=== PATIENT | female | born 1970 | race Caucasian/White ===

== ENCOUNTER 2018-11-30 18:21 | Emergency (ER) | payer OTHER ==
[~2018-11-30] VITALS: Ht 175.3 cm; Wt 102.0 kg
--- NOTE | 2018-11-30 18:50 | NUR ---
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
[2018-11-30 18:59] LABS: BASOPHILS # (AUTO) 0.01 x10^3/uL (0-0.1); BASOPHILS % (AUTO) 0 % (0-1); EOSINOPHILS # (AUTO) 0.02 x10^3/uL (0-0.4); EOSINOPHILS % (AUTO) 1 % (1-7); LYMPHOCYTES # (AUTO) 0.95 x10^3/uL (1-3.4); LYMPHOCYTES % (AUTO) 19 % (22-44); MD NO; MEAN CORPUSCULAR HEMOGLOBIN 29.3 pg (27.0-34.8); MEAN CORPUSCULAR HGB CONC 34.4 g/dL (32.4-35.8); MEAN CORPUSCULAR VOLUME 85.2 fL (80-100); MEAN PLATELET VOLUME 8.6 fL (7.4-10.4); MONOCYTES # (AUTO) 0.51 x10^3/uL (0.2-0.8); MONOCYTES % (AUTO) 10 % (2-9); NEUTROPHILS # (AUTO) 3.42 x10^3/uL (1.8-6.8); NEUTROPHILS % (AUTO) 70 % (42-75); PLATELET COUNT 181 x10^3/uL (130-400); RED BLOOD COUNT 5.41 x10^6/uL (3.82-5.3); RED CELL DISTRIBUTION WIDTH 13.3 % (9.6-15.2)
[2018-11-30 19:12] LABS: ANION GAP 4 mmol/L (5-15); CALCIUM 8.8 mg/dL (8.5-10.1); CHLORIDE 105 mmol/L (98-107); CREATININE 0.97 mg/dL (0.55-1.02)
[2018-11-30 19:16] LABS: TROPONIN I < 0.015 ng/mL (0.000-0.045)
[2018-11-30] MEDS ORDERED: ASPIRIN 325 MG TABLET PO STA (19:17)
--- NOTE | 2018-11-30 19:22 | NUR ---
PT HERE FOR STERNAL CHEST PAIN THAT STARTED THIS AFTERNOON. PAIN WAS 8/10 AND IS NOW 2/10. BP WAS ELEVATE BUT HAS IMPROVED WELL.PT ALSO COMPLAINING OF HEADACHE. PT HAS HX OF HTN. VSS. CALL LIGHT IN REACH
[2018-11-30] MEDS ORDERED: MAALOX/HYOSCYAMINE/LIDOCAINE 45 ML BTL PO ONE (19:30)
[2018-11-30] MEDS ORDERED: ASPIRIN 81 MG TABLET CHEW ONE (19:31)
[2018-11-30] MEDS ORDERED: MAALOX/HYOSCYAMINE/LIDOCAINE 45 ML BTL ONE (19:31)
[2018-11-30 19:32] LABS: T4 (THYROXINE) 9.4 mcg/dL (4.8-13.9)
[2018-11-30 19:40] LABS: THYROID STIMULATING HORMONE 3.24 mIU/L (0.358-3.740)
--- NOTE | 2018-11-30 20:09 | NUR ---
Patient given discharge instructions and they have confirmed that they understand the instructions. Patient ambulatory with steady gait.
[2018-11-30 20:10] VITALS: BP 146/91
== END 2018-11-30 20:12 | disposition home or self-care (01) ==
LOC: ED 20:06
DX: R07.9 Chest pain, unspecified (principal); I10 Essential (primary) hypertension
CPT/HCPCS: 36415; 71046; 80048; 82040; 84436; 84443; 84484; 85025; 93005; 99284